=== PATIENT | male | born 1995 | race Caucasian/White ===

== ENCOUNTER 2016-06-16 05:17 | Emergency (ER) | payer OTHER ==
[~2016-06-16] VITALS: Ht 177.8 cm; Wt 90.7 kg
[~2016-06-16 05:17] MED LIST: AMOXICILLIN500 MG PO; CLARITIN10 MG PO; CLOTRIM ANTIFUNGAL1% TP; CLOTRIMAZOLE TP; FUNGAL CREAM; MEDROL DOSEPAK4 MG PO; NAPROSYN500 MG PO; NKHM; VICODIN ES 7501 TAB PO; [UNRECOGNIZED DRUG - OTHER] TP
== END 2016-06-16 06:50 | disposition home or self-care (01) ==
LOC: ED 05:17
DX: S61.011A Laceration without foreign body of right thumb without damage to nail, initial encounter (principal); X58.XXXA Exposure to other specified factors, initial encounter; Y93.9 Activity, unspecified; Y92.9 Unspecified place or not applicable; Y99.9 Unspecified external cause status

== ENCOUNTER 2017-01-31 06:14 | Inpatient (IN) | payer OTHER ==
[~2017-01-31] VITALS: Ht 177.8 cm; Wt 94.8 kg
[2017-01-31 06:22] VITALS: BP 139/69
[2017-01-31 07:14] LABS: BASO % 0.2 % (0.0-1.0); EOS # 0.3 10*3/uL (0.0-0.4); EOS % 1.6 % (1.0-4.0); HEMATOCRIT 42.1 % (42.0-52.0); HEMOGLOBIN 14.4 g/dl (14.0-18.0); LYMPH # 1.1 10*3/uL (1.3-4.4); LYMPH % 6.9 % (27.0-41.0); MEAN CELL VOLUME 82.7 fl (80.0-94.0); MEAN CORPUSCULAR HGB 28.3 pg (27.0-31.0); MEAN CORPUSCULAR HGB CONC 34.2 g/dl (33.0-37.0); MEAN PLATELET VOLUME 9.3 fl (9.6-12.3); MONO # 1.2 10*3/uL (0.1-1.0); MONO % 7.5 % (3.0-9.0); NEUT # 13.6 10*3/uL (2.3-7.9); NEUT % 83.1 % (47.0-73.0); PLATELET COUNT AUTOMATED 270 10*3/uL (130-400); RED BLOOD COUNT 5.09 10*6/uL (4.50-5.90); RED CELL DISTRI WIDTH 12.2 % (0-14.5); WHITE BLOOD COUNT 16.4 10*3/uL (4.8-10.8)
[2017-01-31 08:48] VITALS: BP 142/70
[2017-01-31 09:00] VITALS: BP 140/69
--- NOTE | 2017-01-31 09:00 | NUR ---
A 21, admitted to 5E, under the services of KATELYN Shelton DO with a diagnosis of SEPTIC PREPATELLAR BURSITIS OF RIGHT KNEE. Chief complaint is PAIN. Patient arrived via bed from ER. Monitor applied. Initial assessment completed. Vital signs taken and recorded. KATELYN SHELTON DO notified of admission to the unit. Orders received. See assessment for past medical history, medications and allergies. Patient and/or family oriented to unit. [facility] visitation policy reviewed. Clothing/patient valuable form completed. ASSESSMENT COMPLETE. SKIN INTACT WITH NO WOUNDS. REFUSES FLU VACCINATION. NOT A CANDIDATE FOR PNEUMONIA VACCINATION. NO HOME MEDICATIONS. MAU GABRIEL
[2017-01-31 10:10] LABS: ALBUMIN 3.7 gm/dl (3.1-4.5); ALKALINE PHOSPHATASE 75 U/L (45-117); BUN 10 mg/dl (7-24); CHLORIDE 106 mmol/L (98-107); CREATININE 1.01 mg/dL (0.70-1.30); POTASSIUM 3.7 mmol/L (3.5-5.1); SGOT/AST 15 IU/L (3-35); SGPT/ALT 28 U/L (12-78); SODIUM 141 mmol/L (136-145); TOTAL PROTEIN 7.7 gm/dL (6.4-8.2)
[2017-01-31 12:00] VITALS: BP 144/61
--- NOTE | 2017-01-31 13:11 | NUR ---
CALLED DR SANCHEZ OFFICE AND LEFT INFORMATION REGARDING NEW PT CONSULT. WAITING OUTPATIENT SERVICES DIRECTOR BACK
[2017-01-31 16:00] VITALS: BP 137/83
[2017-01-31 20:00] VITALS: BP 143/67
--- NOTE | 2017-01-31 21:00 | NUR ---
RESTING IN BED WATCHING TV. NO ACUTE DISTRESS NOTED. RESPIRATIONS EASY. VSS. LUNGS CLEAR. PULSE OX 97% RA. CARDIDEM DRIP MAINTAINED.
--- NOTE | 2017-01-31 22:34 | NUR ---
REQUESTED AND RECEIVED NORCO PER PRN ORDER FOR COMPLAINTS OF RLE PAIN RATING A 5. CALL LIGHT WITHIN REACH. WILL MONITOR FOR EFFECTIVENESS
--- NOTE | 2017-01-31 23:40 | NUR ---
EARLIER MEDS EFFECTIVE. RESTING WITH EYES CLOSED. IV FLUIDS MAINTAINED
[2017-02-01] VITALS: BP 129/40
--- NOTE | 2017-02-01 01:00 | NUR ---
SLEEPING. RESPIRATIONS EASY. VSS.
--- NOTE | 2017-02-01 05:15 | NUR ---
REQUESTED AND RECEIVED NORCO PER PRN ORDER FOR COMPLAINTS OF RLE PAIN RATING A 4. LEG IS LESS RED THIS AM.
--- NOTE | 2017-02-01 06:10 | NUR ---
STATES RELIEF FROM EARLIER MEDS
[2017-02-01 07:40] LABS: BASO # 0.1 10*3/uL (0.0-0.1); BASO % 0.3 % (0.0-1.0); EOS # 0.3 10*3/uL (0.0-0.4); EOS % 1.9 % (1.0-4.0); HEMOGLOBIN 13.6 g/dl (14.0-18.0); LYMPH # 1.2 10*3/uL (1.3-4.4); LYMPH % 7.5 % (27.0-41.0); MEAN CELL VOLUME 84.7 fl (80.0-94.0); MEAN CORPUSCULAR HGB 28.8 pg (27.0-31.0); MEAN PLATELET VOLUME 9.4 fl (9.6-12.3); MONO # 1.5 10*3/uL (0.1-1.0); MONO % 9.3 % (3.0-9.0); NEUT # 12.9 10*3/uL (2.3-7.9); NEUT % 80.4 % (47.0-73.0); PLATELET COUNT AUTOMATED 255 10*3/uL (130-400); RED BLOOD COUNT 4.72 10*6/uL (4.50-5.90); RED CELL DISTRI WIDTH 12.2 % (0-14.5)
[2017-02-01 08:00] VITALS: BP 146/64
[2017-02-01 08:05] LABS: ALBUMIN 3.3 gm/dl (3.1-4.5); BUN 8 mg/dl (7-24); CHLORIDE 104 mmol/L (98-107); POTASSIUM 4.1 mmol/L (3.5-5.1); SODIUM 142 mmol/L (136-145)
--- NOTE | 2017-02-01 08:06 | NUR ---
PT RESTING IN BED. NO DISTRESS NOTED. WILL MONITOR FAMILY AT BEDSIDE
[2017-02-01 08:13] LABS: ALKALINE PHOSPHATASE 72 U/L (45-117); CHOLESTEROL 113 mg/dL (<200); HDL CHOLESTEROL 35 mg/dl (40-60); INTERNATIONAL NORM RATIO 1.1 (2.0-3.5); LDL CHOLESTEROL 68 mg/dL (9-159); PHOSPHOROUS 3.5 mg/dL (2.5-4.9); SGOT/AST 12 IU/L (3-35); SGPT/ALT 24 U/L (12-78); TOTAL PROTEIN 7.3 gm/dL (6.4-8.2); TRIGLYCERIDES 51 mg/dl (<150); VLDL CHOLESTEROL 10 mg/dL (6-40)
--- NOTE | 2017-02-01 09:00 | NUR ---
Serging Machine Operator in to talk to patient. Patient states lives at home with his father. There are 0 steps in the home. Physician: Jermaine Valdez [facility]acy: [facility] Home health services: none Patient's level of ADLs: INDEPENDENT Patient has working utilities: yes DME: none Follow-up physician's appointment after d/c: will be made by hospitalist nurse director upon discharge Does patient want to access PORTAL?: no Discharge plan discussed with patient. He lives at home with his father. He is independent in his ADLs and ambulation. Denies any home needs. When medically stable he will be discharged to home. YOU MORROW
[2017-02-01 09:03] LABS: VITAMIN D, 25-HYDROXY 24.8 ng/mL (30-100)
--- NOTE | 2017-02-01 10:18 | NUR ---
PT REQUESTED AND GIVEN NORCO FOR C/O LEG PAIN. PT RATES PAIN 7/10. WILL MONITOR
[2017-02-01 12:00] VITALS: BP 135/55
--- NOTE | 2017-02-01 12:52 | NUR ---
MELODIE HELPED , WILL MONITOR
[2017-02-01 16:00] VITALS: BP 159/79
--- NOTE | 2017-02-01 18:48 | NUR ---
PT REQUESTED AND GIVEN NORCO FOR C/O RIGHT LE PAIN. PT RATES PAIN 7/10. WILL MONITOR
[2017-02-01 20:00] VITALS: BP 144/60
--- NOTE | 2017-02-01 21:00 | NUR ---
RESTING IN BED WATCHING TV. RESPIRATIONS EASY. LUNGS CLEAR. PULSE OX 95% RA. RLE NOTED TO BE RED, WARM, EDEMATOUS - OUTLINE REMAINS. SCDS PRESENT AT BEDSIDE BUT NOT CURRENTLY IN USE. FATHER REMAINS PRESENT AT BEDSIDE, LABS, MEDS AND PLAN OF CARE REVIEWED.
--- NOTE | 2017-02-01 22:51 | NUR ---
REQUESTED AND RECEIVED NORCO PER PRN ORDER FOR COMPLAINTS OF RLE PAIN RATING A 5. CALL LIGHT WITHIN REACH. WILL MONITOR FOR EFEFCTIVENESS
[2017-02-02] VITALS: BP 123/64
--- NOTE | 2017-02-02 | NUR ---
REMAINS AWAKE, STATES RELIEF FROM EARLIER MEDS. CALL LIGHT WITHIN REACH. NO FURTHER VOICED COMPLAINTS
--- NOTE | 2017-02-02 05:23 | NUR ---
REQUESTED AND RECEIVED NORCO PER PRN ORDER FOR COMPLAINTS OF RLE PAIN RATING A 4. CALL LIGHT WITHIN REACH. WILL MONITOR FOR EFFECTIVENESS
--- NOTE | 2017-02-02 06:30 | NUR ---
STATES RELIEF FROM EARLIER NORCO. NO FURTHER VOICED COMPLAINTS
[2017-02-02 07:32] LABS: BASO # 0.1 10*3/uL (0.0-0.1); BASO % 0.3 % (0.0-1.0); EOS # 0.4 10*3/uL (0.0-0.4); EOS % 2.6 % (1.0-4.0); HEMATOCRIT 42.1 % (42.0-52.0); HEMOGLOBIN 14.7 g/dl (14.0-18.0); LYMPH # 1.2 10*3/uL (1.3-4.4); LYMPH % 7.3 % (27.0-41.0); MEAN CELL VOLUME 83.4 fl (80.0-94.0); MEAN CORPUSCULAR HGB 29.1 pg (27.0-31.0); MEAN CORPUSCULAR HGB CONC 34.9 g/dl (33.0-37.0); MEAN PLATELET VOLUME 9.3 fl (9.6-12.3); MONO # 1.5 10*3/uL (0.1-1.0); MONO % 8.5 % (3.0-9.0); NEUT # 13.7 10*3/uL (2.3-7.9); NEUT % 80.6 % (47.0-73.0); PLATELET COUNT AUTOMATED 319 10*3/uL (130-400); RED BLOOD COUNT 5.05 10*6/uL (4.50-5.90); RED CELL DISTRI WIDTH 12.2 % (0-14.5)
[2017-02-02 07:53] LABS: BUN 11 mg/dl (7-24); CHLORIDE 102 mmol/L (98-107); CREATININE 1.03 mg/dL (0.70-1.30); PHOSPHOROUS 3.7 mg/dL (2.5-4.9); POTASSIUM 3.9 mmol/L (3.5-5.1); SODIUM 139 mmol/L (136-145)
--- NOTE | 2017-02-02 07:58 | NUR ---
PT RESTING IN BED. NO DISTRESS NOTED. PT STATES THAT HIS LEG/KNEE FEEL BETTER. CALL LIGHT WITHIN REACH/ WILL MONITOR
[2017-02-02 08:00] VITALS: BP 128/66
--- NOTE | 2017-02-02 08:30 | NUR ---
Medical Operations Supervisor in to see patient. Denies any home needs at this time. When medically stable he will be discharged to home.
--- NOTE | 2017-02-02 10:01 | NUR ---
PT REQUESTED AND GIVEN NORCO FOR C/O LE PAIN. PT RATES PAIN 6/10. WILL MONITOR
--- NOTE | 2017-02-02 11:00 | NUR ---
[facility], WILL MONITOR
[2017-02-02 12:00] VITALS: BP 134/79
--- NOTE | 2017-02-02 13:56 | NUR ---
PT REQUESTED AND GIVEN NORCO FOR C/O LE PAIN, PT RATES PAIN 7/10. WILL MONITOR. MOM AT BEDSIDE
--- NOTE | 2017-02-02 14:20 | NUR ---
MELODIE BEEBE,. WILL MONITOR
--- NOTE | 2017-02-02 14:30 | NUR ---
DR GODWIN ASPIRATED RIGHT KNEE AT BEDSIDE. NEW ORDERS RECEIVED
--- NOTE | 2017-02-02 15:00 | NUR ---
ASSUMED CARE OF PT AT THIS TIME, RESPS EASY AND NONLABORED WITH NO S/S OF DISTRESS
[2017-02-02 16:00] VITALS: BP 154/58
[2017-02-02 19:38] LABS: BODY FLUID WBC 99400 /uL
[2017-02-02 19:46] LABS: BF LYMPHOCYTES 2 %; BF MACROPHAGES 7 %; BF NEUTROPHILS 91 %
--- NOTE | 2017-02-02 19:58 | NUR ---
PT. IS CURRENTLY RESTING IN BED WITH VISITOR AT BEDSIDE AT THIS TIME. NO SXS OF DISTRESS OR CONCERNS EXPRESSED AT THIS TIME. PT. HAS HOB ELEVATED AND CALL LIGHT WITHIN REACH. THE BED IS LOW AND THE WHEELS ARE LOCKED, SEE SHIFT ASSESSMENT.
[2017-02-02 20:00] VITALS: BP 125/55
--- NOTE | 2017-02-02 20:58 | NUR ---
PT. GIVEN PRN NORCO FOR C/O KNEE PAIN, CALL LIGHT IN REACH WILL MONITOR.
--- NOTE | 2017-02-02 21:50 | NUR ---
PRN NORCO SEEMS EFFECTIVE, PT. IS RESTING QUIETLY WITH DAD AT BEDSIDE. CALL LIGHT WITHIN REACH.
[2017-02-03] VITALS: BP 126/57
[2017-02-03 06:08] LABS: BASO # 0.1 10*3/uL (0.0-0.1); BASO % 0.3 % (0.0-1.0); EOS # 0.5 10*3/uL (0.0-0.4); EOS % 3.3 % (1.0-4.0); HEMATOCRIT 42.7 % (42.0-52.0); HEMOGLOBIN 14.7 g/dl (14.0-18.0); LYMPH # 1.6 10*3/uL (1.3-4.4); LYMPH % 10.7 % (27.0-41.0); MEAN CELL VOLUME 83.4 fl (80.0-94.0); MEAN CORPUSCULAR HGB 28.7 pg (27.0-31.0); MEAN CORPUSCULAR HGB CONC 34.4 g/dl (33.0-37.0); MEAN PLATELET VOLUME 9.5 fl (9.6-12.3); MONO # 1.5 10*3/uL (0.1-1.0); MONO % 9.9 % (3.0-9.0); NEUT % 75.2 % (47.0-73.0); PLATELET COUNT AUTOMATED 326 10*3/uL (130-400); RED BLOOD COUNT 5.12 10*6/uL (4.50-5.90); WHITE BLOOD COUNT 14.6 10*3/uL (4.8-10.8)
[2017-02-03 08:00] VITALS: BP 142/65
--- NOTE | 2017-02-03 10:00 | NUR ---
PATIENT DENIES PAIN UPON ASSESSMENT. LUNGS ARE CLEAR. ABD SOFT AND NONTENDER. RIGHT KNEE STILL SLIGHTLY SWOLLEN WITH SOME REDNESS NOTED, BUT IMPROVED SINCE YESTERDAY. DENIES NEEDS AT THIS TIME. CALL LIGHT WITHIN REACH.
[2017-02-03 12:00] VITALS: BP 142/71
[2017-02-03 16:00] VITALS: BP 140/68
[2017-02-03 20:00] VITALS: BP 147/62
--- NOTE | 2017-02-03 20:15 | NUR ---
PT. IS CURRENTLY RESTING IN ROOM WITH FATHER AT BEDSIDE. PT. DOES NOT EXPRESS ANY CONCERNS AT THIS TIME. EDEMA TO RIGHT KNEE NOTED, BUT IMPROVING SINCE LAST ASSESSMENT BY THIS NURSE. HOB IS ELEVATED, CALL LIGHT WITHIN REACH, BED LOW AND WHEELS LOCKED. SEE SHIFT ASSESSMENT.
--- NOTE | 2017-02-03 21:45 | NUR ---
PT. REQUESTING NURSE, WHEN REMOVING WRAP FROM IV SO PT. COULD SHOWER, PT. WAS C/O POSSIBLE REMOVAL. NURSE ASSESSED IV, AND IV IS IN PLACE AND PATENT AT THIS TIME, NURSE APPLIED NEW IV DRESSING AT THIS TIME.
[2017-02-04] VITALS: BP 131/51
[2017-02-04 08:00] VITALS: BP 135/50
--- NOTE | 2017-02-04 08:00 | NUR ---
ASSESSMENT COMPLETE. RIGHT KNEE PINK/RED. AREA IS LESS RED THAN WHEN ADMITTED, RECINDING FROM LINE THAT WAS INITALLY DRAWN ON LEG. PT DENY PAIN, DENY NUMBNESS/TINGLING TO EXTREMITIES. PT STATES NO NEEDS AT THIS TIME.
--- NOTE | 2017-02-04 08:56 | NUR ---
Shift chart check completed.
[2017-02-04 10:05] LABS: ACID FAST SMEAR Negative (.); ACID FAST SPEC PROCESSING Concentration (.)
[2017-02-04] MEDS ORDERED: DOXYCYCLINE100 MG PO (11:38)
--- NOTE | 2017-02-04 12:18 | NUR ---
Discharge instructions reviewed with patient. Patient receptive and verbalizes understanding. Follow-up care understood. Written instructions given to patient. iv removed, dressing applied. pt given first dose antibiotic and understands to chicken picker rx at pharmacy. no questions prior to discharge. declined wheelchair to front enterence MARIE LOPEZ
== END 2017-02-04 12:18 | disposition home or self-care (01) | DRG 872 ==
LOC: ED 06:14 → 5E 07:24 → EDHOLD 07:24 → 5E 07:56
PROVIDERS: Emergency Medicine; Internal Medicine Nephrology; Orthopaedic Surgery; ADMIT Internal Medicine
PROC: 0S9C3ZZ Drainage of Right Knee Joint, Percutaneous Approach (ICD-10-PCS; principal; 2017-02-02)
DX: A41.9 Sepsis, unspecified organism (principal); L03.115 Cellulitis of right lower limb; L70.9 Acne, unspecified; M71.161 Other infective bursitis, right knee; D72.810 Lymphocytopenia; D72.821 Monocytosis (symptomatic); E66.9 Obesity, unspecified; J45.909 Unspecified asthma, uncomplicated; E55.9 Vitamin D deficiency, unspecified; Z82.49 Family history of ischemic heart disease and other diseases of the circulatory system; Z68.29 Body mass index [BMI] 29.0-29.9, adult; Z79.899 Other long term (current) drug therapy

== ENCOUNTER → 2018-04-18 | Outpatient (CLI) | payer OTHER ==
[~2018-04-18] MED LIST changes: +DOXYCYCLINE100 MG PO
[2018-04-18 14:49] LABS: HEMATOCRIT 47.8 % (42.0-52.0); HEMOGLOBIN 16.1 g/dl (14.0-18.0); MEAN CELL VOLUME 83.3 fl (80.0-94.0); MEAN CORPUSCULAR HGB CONC 33.7 g/dl (33.0-37.0); MEAN PLATELET VOLUME 9.3 fl (9.6-12.3); RED BLOOD COUNT 5.74 10*6/uL (4.50-5.90); RED CELL DISTRI WIDTH 12.6 % (0-14.5); WHITE BLOOD COUNT 9.9 10*3/uL (4.8-10.8)
[2018-04-18 15:29] LABS: ALBUMIN 4.3 gm/dl (3.1-4.5); ALKALINE PHOSPHATASE 77 U/L (45-117); BUN 9 mg/dl (7-24); CHLORIDE 105 mmol/L (98-107); CHOLESTEROL 157 mg/dL (<200); CREATININE 0.97 mg/dL (0.70-1.30); HDL CHOLESTEROL 34 mg/dl (40-60); LDL CHOLESTEROL 87 mg/dL (9-159); POTASSIUM 3.7 mmol/L (3.5-5.1); SGOT/AST 16 IU/L (3-35); SGPT/ALT 39 U/L (12-78); SODIUM 141 mmol/L (136-145); TOTAL PROTEIN 7.5 gm/dL (6.4-8.2); TRIGLYCERIDES 182 mg/dl (<150); VLDL CHOLESTEROL 36 mg/dL (6-40)
== END | disposition home or self-care (01) ==
LOC: LAB 14:26
PROVIDERS: Family Medicine
DX: E78.00 Pure hypercholesterolemia, unspecified (principal); I10 Essential (primary) hypertension; R53.83 Other fatigue

== ENCOUNTER → 2020-12-07 | Outpatient (CLI) | payer OTHER ==
[2020-12-07 09:42] LABS: HEMATOCRIT 49.7 % (42.0-52.0); MEAN CELL VOLUME 83.4 fl (80.0-94.0); MEAN CORPUSCULAR HGB 27.9 pg (27.0-31.0); MEAN CORPUSCULAR HGB CONC 33.4 g/dl (33.0-37.0); MEAN PLATELET VOLUME 9.2 fl (9.6-12.3); RED BLOOD COUNT 5.96 10*6/uL (4.50-5.90); RED CELL DISTRI WIDTH 12.8 % (0-14.5); WHITE BLOOD COUNT 11.4 10*3/uL (4.8-10.8)
[2020-12-07 09:58] LABS: ALBUMIN 4.2 gm/dl (3.1-4.5); BUN 13 mg/dl (7-24); CHLORIDE 108 mmol/L (98-107); CREATININE 0.99 mg/dL (0.70-1.30); POTASSIUM 4.5 mmol/L (3.5-5.1); SGOT/AST 17 IU/L (3-35); SGPT/ALT 37 U/L (12-78); SODIUM 140 mmol/L (136-145)
[2020-12-07 10:05] LABS: ALKALINE PHOSPHATASE 76 U/L (45-117); CHOLESTEROL 134 mg/dL (<200); FREE T4 0.96 ng/dl (0.76-1.46); LDL CHOLESTEROL 79 mg/dL (9-159); THYROID STIM HORMONE (HS) 0.858 uIU/ml (0.358-4.75); TOTAL PROTEIN 7.7 gm/dL (6.4-8.2); TRIGLYCERIDES 90 mg/dl (<150)
[2020-12-10 12:09] LABS: TESTOSTERONE FREE, (DIRECT) 17.1 pg/mL (9.3-26.5)
== END | disposition home or self-care (01) ==
LOC: LAB 09:09
PROVIDERS: ATTEND Family Medicine
DX: Z00.00 Encounter for general adult medical examination without abnormal findings (principal); N52.9 Male erectile dysfunction, unspecified; E29.1 Testicular hypofunction; F41.1 Generalized anxiety disorder; F43.8 Other reactions to severe stress; R53.83 Other fatigue